=== PATIENT | male | born 1945 | race Caucasian/White ===

== ENCOUNTER 2020-09-03 05:57 | Emergency (ER) | payer MEDICARE, OTHER ==
[~2020-09-03] VITALS: Ht 188 cm; Wt 85.7 kg
--- NOTE | 2020-09-03 06:05 | NUR ---
pt bibra c/o rt ankle pain s/p angiogram on 08/31. Pt aaox4 breathing evenly and unlabored. Pt skin is warm and dry. Pt rt ankle is swollen with redness noted. pt attached to monitor and pox. pt given blanket and call light within reach
--- NOTE | 2020-09-03 07:05 | NUR ---
GAVE REPORT TO JESSICA SOTO FOR [facility]
--- NOTE | 2020-09-03 07:12 | NUR ---
US AT BEDSIDE
--- NOTE | 2020-09-03 07:15 | NUR ---
RECEIVED REPORT FROM JESSICA MARCELO FOR [facility]. PT IS AAOX4, NOT IN RESPIRATORY DISTRESS, V/S STABLE, ANIMAL LABORATORY TECHNICIAN AT BEDSIDE FOR US. WILL CONTINUE TO MONITOR.
[2020-09-03] MEDS ORDERED: SULF1TAB48 PO (08:36)
[2020-09-03] MEDS ORDERED: CEPH500C2 PO (08:36)
[2020-09-03 08:42] VITALS: BP 129/88
--- NOTE | 2020-09-03 08:42 | NUR ---
Patient discharged to home in stable condition. Written and verbal after care instructions given. Patient verbalizes understanding of instruction.
== END 2020-09-03 08:42 | disposition home or self-care (01) ==
LOC: ER 06:02
DX: L03.115 Cellulitis of right lower limb (principal); Z98.890 Other specified postprocedural states; Z79.899 Other long term (current) drug therapy
CPT/HCPCS: 93971-TC

== ENCOUNTER 2021-01-25 10:38 | Emergency (ER) | payer MEDICARE, OTHER ==
[~2021-01-25] VITALS: Ht 177.8 cm; Wt 85.3 kg
[~2021-01-25 10:38] MED LIST: CEPH500C2 PO; SULF1TAB48 PO
[2021-01-25] MEDS ORDERED: ONDANSETRON HCL/PF 4 MG/2 ML VIAL ONE ×2 (10:47→10:57)
[2021-01-25] MEDS ORDERED: ACETAMINOPHEN ES 500 MG TABLET ONE ×2 (10:48→10:57)
--- NOTE | 2021-01-25 10:50 | NUR ---
THE PATIENT BIB RA, C/O FEVER, BODY ACHES AND NAUSEA SINCE LAST NIGHT. THE PATIENT IS ALERT AND ORIENTED X4. RATES BODY ACHES 5/10. IN ROOM AIR AND DENIES SOB. RESPIRATION REGULAR AND UNLABORED. ATTACHED TO THE MONITOR.
[2021-01-25] MEDS: IV NS 0.9% 1,000 ML IV ONE (11:07)
--- NOTE | 2021-01-25 11:07 | NUR ---
UNABLE TO PROVIDE URINE AT THIS TIME
[2021-01-25] MEDS: ONDANSETRON HCL/PF - ER 4 MG/2 ML VIAL IV ONE (11:08)
[2021-01-25] MEDS: ACETAMINOPHEN ES 500 MG TABLET PO ONE (11:08)
[2021-01-25 11:12] LABS: BASOPHILS % (AUTO) 0.2 % (0.0-2.0); EOSINOPHILS % (AUTO) 0.4 % (0.0-6.0); HEMATOCRIT 49 % (39-51); HEMOGLOBIN 16.4 g/dL (13.5-17.5); LYMPHOCYTES # (AUTO) 0.3 K/uL (0.8-4.8); LYMPHOCYTES % (AUTO) 7.1 % (20.0-44.0); MEAN CORPUSCULAR HGB CONC 34 g/dl (31.0-36.0); MEAN CORPUSCULAR VOLUME 89 fL (80-96); NEUTROPHILS # (AUTO) 4.2 K/uL (1.8-8.9); NEUTROPHILS % (AUTO) 91.3 % (43.0-81.0); PLATELET COUNT (AUTO) 242 K/uL (150-450); RED BLOOD CELL COUNT(AUTO) 5.49 MIL/uL (4.5-6.0); WHITE BLOOD COUNT (AUTO) 4.6 K/uL (4.3-11.0)
[2021-01-25 11:23] LABS: CALCIUM, SERUM 9.1 mg/dL (8.5-10.1); CARBON DIOXIDE 18 mmol/L (21-32); CHLORIDE 106 mmol/L (98-107); CREATININE 1.8 mg/dL (0.6-1.3); GLUCOSE 101 mg/dL (74-106); POTASSIUM 4.4 mmol/L (3.5-5.1); SODIUM SERUM 140 mmol/L (136-145); UREA NITROGEN, BLOOD 24 mg/dL (7-18)
[2021-01-25 11:44] LABS: ALANINE AMINOTRANSFERASE 17 U/L (12-78); ALBUMIN 3.7 g/dL (3.4-5.0); ALKALINE PHOSPHATASE 93 U/L (46-116); ASPARTATE AMINOTRANSFERASE 19 U/L (15-37); BILIRUBIN,TOTAL 0.3 mg/dL (0.2-1.0); TOTAL PROTEIN, SERUM 8.3 g/dL (6.4-8.2)
[2021-01-25 11:47] LABS: BILIRUBIN,URINE Negative (NEGATIVE); COLOR,URINE YELLOW (YELLOW); LEUKOCYTE ESTERASE ,URINE Negative (NEGATIVE); NITRITE, URINE Negative (NEGATIVE); PH,URINE 5.5 (5.0-8.0); PROTEIN,URINE >=300 mg/dl (NEGATIVE); UGLUCOSE Negative (NEGATIVE); UROBILINOGEN,URINE 0.2 EU/dL (0.2)
[2021-01-25 11:48] LABS: BACTERIA,URINE Rare /HPF (None Seen); SQUAMOUS EPITHELIAL CELL,UR Rare /HPF (None Seen); WBC,URINE 0-2 /HPF (0-3)
--- NOTE | 2021-01-25 11:53 | NUR ---
DR NUNEZ MADE AWARE OF BLOOD PRESSURE 78/69 AND PULSE 114.
[2021-01-25] MEDS ORDERED: ENOXAPARIN SODIUM 100 MG/ML DISP.SYRIN SQ ONE (11:54)
[2021-01-25 11:56] LABS: CREATINE KINASE, TOTAL 76 U/L (39-308); FERRITIN 213 ng/mL (8-388)
[2021-01-25 11:58] LABS: C-REACTIVE PROTEIN 1.5 mg/dL (0.0-0.9)
[2021-01-25] MEDS: IV NS 0.9% 2,000 ML IV ONE (12:00)
[2021-01-25] MEDS: ENOXAPARIN SODIUM 80 MG/0.8 ML DISP.SYRIN SQ ONE (12:06)
[2021-01-25] MEDS ORDERED: IOHEXOL-300 100 ML VIAL IV ONE (12:14)
[2021-01-25] MEDS ORDERED: IV NS 0.9% 250 ML IV ONE (12:14)
--- NOTE | 2021-01-25 12:28 | NUR ---
MOVE SHEET SUBMITTED AND CALLED FOR TELE BED.
[2021-01-25] MEDS: VANCOMYCIN 1 GM in IV D5W 250 ML IV ONE (12:40)
[2021-01-25] MEDS: PIPERACILLIN /TAZOBACTAM 3.375 G in IV D5W 50 ML IV ONE (12:41)
[2021-01-25 12:44] LABS: D-DIMER 10.31 mg/L(FEU (0.17-0.50)
[2021-01-25] MEDS ORDERED: RIVA2.5T PO (12:46)
[2021-01-25] MEDS ORDERED: DUTA0.5C37 PO (12:46)
[2021-01-25] MEDS ORDERED: CLOP75TA15 PO (12:46)
[2021-01-25] MEDS ORDERED: TAMS-12 PO (12:46)
[2021-01-25] MEDS ORDERED: MEMA28CA5 PO (12:46)
--- NOTE | 2021-01-25 13:21 | NUR ---
[facility] CALLED DECK ENGINE OPERATOR PAGED.
--- NOTE | 2021-01-25 13:23 | NUR ---
THE PATIENT REFUSING CENTRAL LINE PLACEMENT BY DR NUNEZ. DESPITE EXPLAINING RISKS AND BENEFITS THE PATIENT STILL REFUSED.
--- NOTE | 2021-01-25 14:05 | NUR ---
IV removed. Catheter intact and site benign. Pressure and 4x4 applied to site. No bleeding noted.Patient does not wish to proceed with medical care recommended by Dr. Solomon. Patient given information related to possible complications, up to and including , which could occur as a result of leaving the hospital at this time. Patient verbalizes understanding of risks involved due to leaving against medical advice. Patient has signed AMA form. The patient is picked up by .
[2021-01-25 14:06] VITALS: BP 106/68
[2021-01-25] MEDS: NOREPINEPHRINE 8 MG in IV NS 0.9% 250 ML IV ONE (14:06)
[2021-01-25] MEDS ORDERED: Medication Not On Formulary EA (Rivaroxaban (Xarelto) 2.5 MG) PO SCH (17:00)
[2021-01-26] MEDS ORDERED: MEMANTINE HCL PO SCH (09:00)
[2021-01-26] MEDS ORDERED: CLOPIDOGREL BISULFATE 75 MG TABLET PO SCH (09:00)
[2021-01-29] MEDS ORDERED: CEPH500C2 PO (09:26)
== END 2021-01-25 14:06 | disposition home or self-care (01) ==
LOC: ER 10:44
DX: A41.9 Sepsis, unspecified organism (principal); R11.2 Nausea with vomiting, unspecified; R00.0 Tachycardia, unspecified; Z98.890 Other specified postprocedural states; Z79.899 Other long term (current) drug therapy
CPT/HCPCS: 36415; 71045; 74177; 80053; 81001; 82550; 82728; 83605; 83615; 83880; 84145; 84484; 85025; 85378; 85385; 85730; 86140; 87040 ×2; 87086; 93005; 96361 ×2; 96365 ×2; 96372; 96375; 99291; 99292; J1650; J2405 ×2; J2543; J3370; J7030 ×3; J7050; J7060; Q9967

== ENCOUNTER 2021-01-26 12:51 | Inpatient (IN) | payer MEDICARE, OTHER ==
[~2021-01-26] VITALS: Ht 172.7 cm; Wt 83.0 kg
[~2021-01-26 12:51] MED LIST changes: -CEPH500C2 PO; +CLOP75TA15 PO; +DUTA0.5C37 PO; +MEMA28CA5 PO; +RIVA2.5T PO; -SULF1TAB48 PO; +TAMS-12 PO
--- NOTE | 2021-01-26 13:08 | NUR ---
TO ER BED 6, ELIZABETH, WAS HERE YESTERDAY LEFT AMA, STILL C/O FEVER LAST NIGHT, NO FEVER TODAY
[2021-01-26] MEDS ORDERED: ONDANSETRON HCL/PF 4 MG/2 ML VIAL IVP ONE (14:30)
[2021-01-26] MEDS ORDERED: IV NS 0.9% 1,000 ML BAG IV ONE (14:30)
[2021-01-26] MEDS ORDERED: ACETAMINOPHEN ES 500 MG TABLET PO ONE (14:30)
[2021-01-26] MEDS ORDERED: PIPERACILLIN /TAZOBACTAM 3.375 G in IV D5W 50 ML IV ONE (14:30)
[2021-01-26] MEDS ORDERED: ACETAMINOPHEN ES 500 MG TABLET ONE (14:47)
[2021-01-26] MEDS ORDERED: ONDANSETRON HCL/PF 4 MG/2 ML VIAL ONE (14:47)
--- NOTE | 2021-01-26 14:56 | NUR ---
UNABLE TO URINATE AT THIS TIME
[2021-01-26 15:15] LABS: BASOPHILS # (AUTO) 0.1 K/uL (0.0-0.2); BASOPHILS % (AUTO) 0.8 % (0.0-2.0); EOSINOPHILS % (AUTO) 0.6 % (0.0-6.0); HEMATOCRIT 47 % (39-51); HEMOGLOBIN 15.5 g/dL (13.5-17.5); LYMPHOCYTES # (AUTO) 0.7 K/uL (0.8-4.8); LYMPHOCYTES % (AUTO) 8.7 % (20.0-44.0); MEAN CORPUSCULAR HGB CONC 33 g/dl (31.0-36.0); MEAN CORPUSCULAR VOLUME 91 fL (80-96); MONOCYTES # (AUTO) 0.3 K/uL (0.1-1.30); MONOCYTES % (AUTO) 4.1 % (2.0-12.0); NEUTROPHILS % (AUTO) 85.8 % (43.0-81.0); PLATELET COUNT (AUTO) 180 K/uL (150-450); RED BLOOD CELL COUNT(AUTO) 5.15 MIL/uL (4.5-6.0); WHITE BLOOD COUNT (AUTO) 8.2 K/uL (4.3-11.0)
--- NOTE | 2021-01-26 15:53 | NUR ---
URINE COLLECTED AND SENT TO LAB
[2021-01-26 15:55] LABS: BILIRUBIN,URINE NEGATIVE (NEGATIVE); COLOR,URINE YELLOW (YELLOW); LEUKOCYTE ESTERASE ,URINE TRACE (NEGATIVE); NITRITE, URINE NEGATIVE (NEGATIVE); PROTEIN,URINE NEGATIVE (NEGATIVE); UGLUCOSE NEGATIVE (NEGATIVE)
[2021-01-26 16:07] LABS: BACTERIA,URINE 1+ /HPF (None Seen)
--- NOTE | 2021-01-26 16:17 | NUR ---
PAGED [facility].
--- NOTE | 2021-01-26 16:22 | NUR ---
PAGED [facility] AND IS SPEAKING WITH JOSE ALFREDO SNYDER OF [facility].
--- NOTE | 2021-01-26 16:30 | NUR ---
COVID SWAB DONE AND SENT TO LAB
[2021-01-26 16:36] LABS: ALBUMIN 3.1 g/dL (3.4-5.0); ALKALINE PHOSPHATASE 64 U/L (46-116); ASPARTATE AMINOTRANSFERASE 41 U/L (15-37); BILIRUBIN,DIRECT 0.1 mg/dL (0.0-0.2); BILIRUBIN,TOTAL 0.5 mg/dL (0.2-1.0); CALCIUM, SERUM 8.4 mg/dL (8.5-10.1); CARBON DIOXIDE 20 mmol/L (21-32); CHLORIDE 104 mmol/L (98-107); CREATININE 1.5 mg/dL (0.6-1.3); GLUCOSE 93 mg/dL (74-106); POTASSIUM 4.8 mmol/L (3.5-5.1); SODIUM SERUM 136 mmol/L (136-145); TOTAL PROTEIN, SERUM 7.5 g/dL (6.4-8.2); UREA NITROGEN, BLOOD 18 mg/dL (7-18)
[2021-01-26 16:56] LABS: ALANINE AMINOTRANSFERASE 26 U/L (12-78)
--- NOTE | 2021-01-26 17:49 | NUR ---
Tr connell in [facility] - 01/26/21 at 1822 by MASSIEL 117-2 IS THE BED PT WILL BE GOING TO PER RN HAIR OR BEAUTY SALON MANAGER.
--- NOTE | 2021-01-26 18:02 | NUR ---
CALLED NURSING FLEXIBLE MACHINING SYSTEM MACHINIST FOR TELE BED.
--- NOTE | 2021-01-26 19:14 | NUR ---
REPORT GIVEN TO PASCALE LOPEZ FOR [facility]
--- NOTE | 2021-01-26 19:49 | NUR ---
314-1 PER RN MEDICAL LAB TECHNICIAN
--- NOTE | 2021-01-26 21:20 | NUR ---
REPORT GIVEN TO RAMANA Bonilla RN
[2021-01-26 22:15] VITALS: BP 104/51
--- NOTE | 2021-01-26 22:15 | NUR ---
ETYMOLOGY TEACHERNUT CHOPPER NOTES RECEIVED PATIENT FROM ER VIA GURNEY, AWAKE AND A/O X4. ON ROOM AIR WITH NO SOB NOTED. NOT IN DISTRESS. WITHOUT ANY COMPLAINTS OF PAIN AND DISCOMFORT. WITH IV ACCESS AT RIGHT AC G20, SALINE LOCKED, INTACT AND PATENT. MADE PATIENT COMFORTABLE ON BED. SAFETY MEASURES IN PLACED. CALL LIGHT WITHIN REACH, BED ON LOWEST AND LOCKED POSITION WITH SIDE RAILS UP X2. WILL CONTINUE TO MONITOR.
--- NOTE | 2021-01-26 22:18 | NUR ---
PT TRANSFERRED TO 3W VIA ACLS PROTOCOL
[2021-01-26 22:30] VITALS: BP 104/51
[2021-01-26] MEDS ORDERED: IV NS 0.9% 1,000 ML IV PRN (23:00)
[2021-01-26] MEDS ORDERED: ACETAMINOPHEN 325 MG TABLET PO PRN (23:00)
[2021-01-26] MEDS ORDERED: Z GUARD REMEDY 2 OZ OINT TP PRN (23:00)
[2021-01-26] MEDS ORDERED: ONDANSETRON HCL/PF 4 MG/2 ML VIAL IVP PRN (23:00)
[2021-01-27] VITALS: BP 129/96
[2021-01-27] MEDS ORDERED: CEFTRIAXONE 1 G VIAL ONE (00:07)
[2021-01-27] MEDS: CEFTRIAXONE 1 G in IV D5W 50 ML IV SCH ×2 (00:18→23:03)
[2021-01-27] MEDS: TAMSULOSIN 0.4 MG CAP.SR.24H PO SCH ×2 (00:19→22:50)
[2021-01-27 04:00] VITALS: BP 96/57
--- NOTE | 2021-01-27 06:43 | NUR ---
PRINTED CIRCUIT BOARD PANELS PLATER CLOSING NOTES PATIENT RESTING ON BED, A/O X4. ON ROOM AIR WITH NO SOB NOTED. NOT IN DISTRESS. WITHOUT ANY COMPLAINTS OF PAIN AND DISCOMFORT WITHIN THE SHIFT. WITH IV ACCESS AT RIGHT AC G20, SALINE LOCKED, INTACT AND PATENT. DUE MEDS GIVEN. SAFETY MEASURES IN PLACED. CALL LIGHT WITHIN REACH, BED ON LOWEST AND LOCKED POSITION WITH SIDE RAILS UP X2. WILL ENDORSE TO NEXT SHIFT FOR [facility].
[2021-01-27 07:33] LABS: BASOPHILS % (AUTO) 0.5 % (0.0-2.0); EOSINOPHILS % (AUTO) 2.1 % (0.0-6.0); HEMATOCRIT 43 % (39-51); HEMOGLOBIN 14.5 g/dL (13.5-17.5); LYMPHOCYTES # (AUTO) 0.8 K/uL (0.8-4.8); LYMPHOCYTES % (AUTO) 16.4 % (20.0-44.0); MEAN CORPUSCULAR HGB CONC 34 g/dl (31.0-36.0); MEAN CORPUSCULAR VOLUME 90 fL (80-96); MONOCYTES # (AUTO) 0.4 K/uL (0.1-1.30); MONOCYTES % (AUTO) 7.7 % (2.0-12.0); NEUTROPHILS # (AUTO) 3.7 K/uL (1.8-8.9); NEUTROPHILS % (AUTO) 73.3 % (43.0-81.0); PLATELET COUNT (AUTO) 148 K/uL (150-450); RED BLOOD CELL COUNT(AUTO) 4.82 MIL/uL (4.5-6.0)
[2021-01-27 08:00] VITALS: BP 101/71
[2021-01-27 08:01] LABS: THYROID STIMULATING HORMONE 3.154 uIU/mL (0.358-3.74)
[2021-01-27 08:02] LABS: CALCIUM, SERUM 8.1 mg/dL (8.5-10.1); CREATININE 1.3 mg/dL (0.6-1.3); PHOSPHORUS 2.4 mg/dL (2.5-4.9)
--- NOTE | 2021-01-27 08:02 | NUR ---
PAINT PREP TECHNICIAN OPENING NOTES RECEIVED PATIENT IN BED, AWAKE, A/O X4. PATIENT ON ROOM AIR; BREATHING EVEN AND UNLABORED, NO SOB NOTED AT THIS TIME. NO COMPLAINS OF PAIN. TELE MONITOR WITH A CURRENT READING OF NSR 64. IV ACCESS OF RAC G #20 RUNNING NS @ 75 MLS/HR. SAFETY PRECAUTIONS IN PLACE; BED IN LOW POSITION AND LOCKED, RAILS UP X2, CALL LIGHT WITHIN REACH. WILL CONTINUE TO MONITOR PATIENT.
[2021-01-27] MEDS: DUTASTERIDE (0.5 MG) 0.5 MG CAPSULE PO SCH (08:22)
[2021-01-27] MEDS: CLOPIDOGREL BISULFATE 75 MG TABLET PO SCH (08:22)
[2021-01-27] MEDS: MEMANTINE HCL 5 MG TABLET PO SCH ×2 (08:22→16:18)
--- NOTE | 2021-01-27 12:30 | NUR ---
TECHNOLOGY TRAINER NOTES LAB CALLED WITH CRITICAL PROCALCITONIN OF 17.44 MD ON THE FLOOR AND MADE AWARE.
[2021-01-27] MEDS ORDERED: K PHOS NEUTRAL 250 MG TABLET PO ONE (15:30)
[2021-01-27 16:05] VITALS: BP 101/60
[2021-01-27] MEDS: RIVAROXABAN 10 MG TABLET PO SCH (16:17)
--- NOTE | 2021-01-27 18:51 | NUR ---
CYBER SECURITY ADMINISTRATOR CLOSING NOTES PATIENT REMAINS IN BED, AWAKE, A/O X4. PATIENT ON ROOM AIR; BREATHING EVEN AND UNLABORED, NO SOB NOTED DURING THE DAY. NO COMPLAINS OF PAIN. REFUSES TELE MONITOR. IV ACCESS OF RAC G #20 RUNNING NS @ 75 MLS/HR. ALL NEEDS ATTENDED DURING THE DAY. SAFETY PRECAUTIONS IN PLACE; BED IN LOW POSITION AND LOCKED, RAILS UP X2, CALL LIGHT WITHIN REACH. WILL ENDORSE TO MULTI OPERATION MACHINE OPERATOR NURSE.
--- NOTE | 2021-01-27 19:45 | NUR ---
ROBOTYPE OPERATOR OPENING NOTES PATIENT RESTING IN BED, ALERT/ORIENTED X 4, PT ABLE TO MAKE NEEDS KNOWN. NO COMPLAINTS OF PAIN AT THIS TIME. PT STABLE ON RA, NO S/S OF DISTRESS OR SOB NOTED, BREATHING EVEN AND UNLABORED. PATIENT REFUSING TELE MONITORING. PT ALSO REFUSING IV FLUIDS AT THIS TIME, RISKS AND BENEFITS EXPLAINED TO PATIENT BUT PATIENT STILL REFUSED, STATED HE WILL BE DRINKING FLUIDS. RIGHT AC #20G INTACT AND FLUSHING WELL. SAFETY MEASURES IN PLACE: CALL LIGHT WITHIN REACH, BED LOCKED IN LOW POSITION, SIDE RAILS UP X 2. WILL CONTINUE TO MONITOR PATIENT THROUGHOUT SHIFT
[2021-01-27 20:00] VITALS: BP 105/73
[2021-01-28 00:09] VITALS: BP 141/92
--- NOTE | 2021-01-28 06:32 | NUR ---
COMPUTER HARDWARE DESIGNER CLOSING NOTES PATIENT SLEEPING IN BED, PT STABLE ON RA, NO S/S OF DISTRESS OR SOB NOTED, BREATHING EVEN AND UNLABORED. PATIENT REFUSING TELE MONITORING AND IV FLUIDS, RISKS AND BENEFITS EXPLAINED TO PATIENT BUT PATIENT STILL REFUSED, ENCOURAGED TO DRINK ORAL FLUIDS, PT STATED HE WILL BE DRINKING FLUIDS. RIGHT AC #20G INTACT AND SALINE LOCKED. MEDICATIONS GIVEN ORDERED, PT NEEDS MET THROUGHOUT SHIFT. SAFETY MEASURES IN PLACE: CALL LIGHT WITHIN REACH, BED LOCKED IN LOW POSITION, SIDE RAILS UP X 2. WILL ENDORSE TO DAY SHIFT NURSE FOR CONTINUITY OF CARE
--- NOTE | 2021-01-28 07:29 | NUR ---
STONE ENGRAVER OPENING NOTES RECEIVED PATIENT IN BED ASLEEP, EASY TO AROUSE. ALERT AN ORIENTED X 4.NOT IN ANY APPARENT DISTRESS. IV ACCESS RAC#20 PATENT AND INTACT, SL. BREATHING IS EVEN AND UNLABORED, ON 3L NC SATURATING AT %97. SAFETY MEASURES IN PLACE WITH BED LOCKED AT LOW POSITION AND SIDE RAILS UP X2. CALL LIGHT IS WITHIN REACH. WILL CONTINUE TO MONITOR THROUGHOUT SHIFT.
[2021-01-28 08:00] VITALS: BP 116/76
[2021-01-28 08:00] LABS: BASOPHILS % (AUTO) 0.7 % (0.0-2.0); EOSINOPHILS % (AUTO) 2.4 % (0.0-6.0); HEMATOCRIT 40 % (39-51); HEMOGLOBIN 13.5 g/dL (13.5-17.5); LYMPHOCYTES # (AUTO) 1.4 K/uL (0.8-4.8); LYMPHOCYTES % (AUTO) 31.6 % (20.0-44.0); MEAN CORPUSCULAR HGB CONC 34 g/dl (31.0-36.0); MEAN CORPUSCULAR VOLUME 89 fL (80-96); MONOCYTES # (AUTO) 0.3 K/uL (0.1-1.30); MONOCYTES % (AUTO) 7.7 % (2.0-12.0); NEUTROPHILS # (AUTO) 2.6 K/uL (1.8-8.9); NEUTROPHILS % (AUTO) 57.6 % (43.0-81.0); PLATELET COUNT (AUTO) 160 K/uL (150-450); RED BLOOD CELL COUNT(AUTO) 4.48 MIL/uL (4.5-6.0); WHITE BLOOD COUNT (AUTO) 4.5 K/uL (4.3-11.0)
[2021-01-28] MEDS: DUTASTERIDE (0.5 MG) 0.5 MG CAPSULE PO SCH (08:31)
[2021-01-28] MEDS: CLOPIDOGREL BISULFATE 75 MG TABLET PO SCH (08:31)
[2021-01-28] MEDS: MEMANTINE HCL 5 MG TABLET PO SCH ×2 (08:31→16:28)
[2021-01-28] MEDS: METOPROLOL TARTRATE 50 MG TABLET PO SCH ×2 (08:56→21:50)
[2021-01-28 11:29] VITALS: BP 104/68
[2021-01-28] MEDS: IV NS 0.9% 1,000 ML IV SCH (13:54)
[2021-01-28 16:00] VITALS: BP 102/62
[2021-01-28] MEDS: RIVAROXABAN 10 MG TABLET PO SCH (16:32)
[2021-01-28] MEDS ORDERED: IOHEXOL-350 100 ML VIAL IV ONE ×2 (16:42→17:18)
[2021-01-28] MEDS ORDERED: IV NS 0.9% 250 ML IV ONE ×2 (16:42→17:18)
--- NOTE | 2021-01-28 18:53 | NUR ---
ARMHOLE RAISER LOCKSTITCH CLOSING NOTES PATIENT IN BED RESTING COMFORTABLY. ALERT AN ORIENTED X 4.NOT IN ANY APPARENT DISTRESS. NO C/O PAIN AT THIS TIME. PATIENT RETURNED FROM [facility] WITH STABLE VITAL SIGNS. IV ACCESS RAC#20 WITH SOME SWELLING. WARM COMPRESS APPLIED. PATIENT STILL REFUSING IVF AND STATES HE WILL DRINK WATER HIMSELF. NEW IV LAC#20 INSERTED IN RADIOLOGY. SAFETY MEASURES MAINTAINED. CALL LIGHT IS WITHIN REACH. WILL ENDORSE CONTINUITY OF CARE TO ONCOMING SHIFT.
[2021-01-28 20:00] VITALS: BP 126/79
--- NOTE | 2021-01-28 20:01 | NUR ---
MS RN OPENING NOTES PATIENT RESTING IN BED WATCHING TV, ALERT/ORIENTED X 4, PT ABLE TO MAKE NEEDS KNOWN. NO COMPLAINTS OF PAIN AT THIS TIME. PT STABLE ON RA, NO S/S OF DISTRESS OR SOB NOTED, BREATHING EVEN AND UNLABORED. PT STILL REFUSING IV FLUIDS AT THIS TIME, STATED HE WILL BE DRINKING FLUIDS. LEFT AC #20G INTACT AND FLUSHING WELL. SAFETY MEASURES IN PLACE: CALL LIGHT WITHIN REACH, BED LOCKED IN LOW POSITION, SIDE RAILS UP X 2. WILL CONTINUE TO MONITOR PATIENT THROUGHOUT SHIFT
[2021-01-28] MEDS: TAMSULOSIN 0.4 MG CAP.SR.24H PO SCH (22:05)
[2021-01-29] MEDS: CEFTRIAXONE 1 G in IV D5W 50 ML IV SCH (00:05)
[2021-01-29] MEDS: IV NS 0.9% 1,000 ML IV SCH (02:50)
--- NOTE | 2021-01-29 06:45 | NUR ---
MS RN CLOSING NOTES PATIENT SLEEPING IN BED, PT REMAINED STABLE DURING SHIFT. PT STABLE ON RA, NO S/S OF DISTRESS OR SOB NOTED, BREATHING EVEN AND UNLABORED. PT STILL REFUSING IV FLUIDS AT THIS TIME, STATED HE WILL BE DRINKING FLUIDS. LEFT AC #20G INTACT AND FLUSHING WELL. MEDICATIONS GIVEN ORDERED, PT NEEDS MET THROUGHOUT SHIFT. SAFETY MEASURES IN PLACE: CALL LIGHT WITHIN REACH, BED LOCKED IN LOW POSITION, SIDE RAILS UP X 2. WILL ENDORSE TO DAY SHIFT NURSE FOR CONTINUITY OF CARE
[2021-01-29 08:15] VITALS: BP 99/69
[2021-01-29 08:22] VITALS: BP 99/69
[2021-01-29] MEDS: DUTASTERIDE (0.5 MG) 0.5 MG CAPSULE PO SCH (08:22)
[2021-01-29] MEDS: METOPROLOL TARTRATE 50 MG TABLET PO SCH (08:22)
[2021-01-29] MEDS: MEMANTINE HCL 5 MG TABLET PO SCH (08:22)
[2021-01-29] MEDS: CLOPIDOGREL BISULFATE 75 MG TABLET PO SCH (08:23)
[2021-01-29] MEDS ORDERED: CEPH500C2 PO (09:26)
--- NOTE | 2021-01-29 12:23 | NUR ---
MS MANAGER GRANT NOTES RECEIVED DISCHARGE ORDER FOR PATIENT. DISCHARGED WITH STABLE VITAL SIGNS. DISCHARGE INSTRUCTIONS REVIEWED AND SIGNED WITH PATIENT. ALL BELONGINGS RETURNED WITH FORM SIGNED AND BELONGINGS ACCOUNTED FOR. IV ACCESS AND WRISTBAND REMOVED. OBSERVED PATIENT GET INTO PRIVATE CAR WITH FRIEND.
== END 2021-01-29 12:20 | disposition home or self-care (01) | DRG 871 ==
LOC: ER 12:55 → TELE 20:39 → MED 01-28 11:57
PROVIDERS: ADMIT Nurse Practitioner Acute Care; ATTEND Nurse Practitioner Acute Care
DX: A41.9 Sepsis, unspecified organism (principal); N17.0 Acute kidney failure with tubular necrosis; I21.A1 Myocardial infarction type 2; N39.0 Urinary tract infection, site not specified; D68.59 Other primary thrombophilia; E78.5 Hyperlipidemia, unspecified; I10 Essential (primary) hypertension; Z95.5 Presence of coronary angioplasty implant and graft; Z79.02 Long term (current) use of antithrombotics/antiplatelets; Z79.01 Long term (current) use of anticoagulants; Z79.899 Other long term (current) drug therapy; I25.10 Atherosclerotic heart disease of native coronary artery without angina pectoris; I73.9 Peripheral vascular disease, unspecified; B96.89 Other specified bacterial agents as the cause of diseases classified elsewhere; E83.51 Hypocalcemia; E66.9 Obesity, unspecified; Z68.27 Body mass index [BMI] 27.0-27.9, adult; N40.0 Benign prostatic hyperplasia without lower urinary tract symptoms; F03.90 Unspecified dementia, unspecified severity, without behavioral disturbance, psychotic disturbance, mood disturbance, and anxiety
CPT/HCPCS: 36415; 71045-TC; 75574; 80048-TC; 80053-TC; 80061-TC; 80076-TC; 81001; 82550-TC; 82728-TC; 83540-TC; 83605-TC; 83615-TC; 83880; 84100-TC; 84443-TC; 84484-TC; 85025-TC; 85378-TC; 85385-TC; 85730-TC; 86140-TC; 87040-TC; 87081-TC; 87086-TC; 93307-TC; C9803; G0378; J0696; J2405; J2543; J7030; J7040; J7050; J7060; Q9967

== ENCOUNTER 2021-12-28 05:40 | Emergency (ER) | payer MEDICARE, OTHER ==
[~2021-12-28] VITALS: Ht 167.6 cm; Wt 87.5 kg
[~2021-12-28 05:40] MED LIST changes: +CEPH500C2 PO
--- NOTE | 2021-12-28 05:52 | NUR ---
bibs. r eyebrow laceration and hematoma s/p fell of his bed while sleeping. the the head on side table. on blood thinner. tetanus not up to date. Patient alert and oriented x3. ambulatory with non labored breahting in bed 11 awaiting md karimi.
[2021-12-28] MEDS ORDERED: TDAP [DIPH/PERTUSSIS/TET] 0.5 ML VIAL IM ONE ×2 (06:38→07:00)
--- NOTE | 2021-12-28 06:40 | NUR ---
PT GOING TO CT
[2021-12-28] MEDS ORDERED: LIDOCAINE 1%-EPI 1:100,000 50 ML VIAL IJ ONE (07:00)
--- NOTE | 2021-12-28 09:28 | NUR ---
Patient discharged to home in stable condition. Written and verbal after care instructions given. Patient verbalizes understanding of instruction. Addendum: 12/28/21 at 0928 by JORDYN the patient is picked up by
[2021-12-28 09:29] VITALS: BP 127/67
== END 2021-12-28 09:29 | disposition home or self-care (01) ==
LOC: ER 05:40
DX: S01.81XA Laceration without foreign body of other part of head, initial encounter (principal); I10 Essential (primary) hypertension; Z98.890 Other specified postprocedural states; Z79.899 Other long term (current) drug therapy; W06.XXXA Fall from bed, initial encounter; Y93.89 Activity, other specified; Y92.89 Other specified places as the place of occurrence of the external cause; Y99.8 Other external cause status
CPT/HCPCS: 99284; 70450; 12013; 90471; 90715; J3490; A6403 ×3

== ENCOUNTER 2022-01-07 16:30 | Emergency (ER) | payer MEDICARE, OTHER ==
[~2022-01-07] VITALS: Ht 170.2 cm; Wt 72.6 kg
[2022-01-07 16:40] VITALS: BP 162/81
--- NOTE | 2022-01-07 16:55 | NUR ---
Sutures removed by EMT Joselin. NO active bleeding Patient discharged to home in stable condition. Written and verbal after care instructions given. Patient verbalizes understanding of instruction.
== END 2022-01-07 16:55 | disposition home or self-care (01) ==
LOC: ER 16:32
DX: S01.81XD Laceration without foreign body of other part of head, subsequent encounter (principal); Z79.899 Other long term (current) drug therapy; Z60.2 Problems related to living alone; X58.XXXD Exposure to other specified factors, subsequent encounter